=== PATIENT | female | born 1980 | race Caucasian/White ===

== ENCOUNTER 2021-12-18 08:33 | Emergency (ER) | payer MEDICAID ==
[~2021-12-18] VITALS: Ht 152.4 cm; Wt 107.5 kg
[2021-12-18 08:43] VITALS: BP 142/79
--- NOTE | 2021-12-18 08:49 | NUR ---
PT AMBULATED TO ROOM 7
--- NOTE | 2021-12-18 08:58 | NUR ---
MD LEON AT BEDSIDE FOR EVALUATION
[2021-12-18] MEDS ORDERED: ONDANSETRON 4 MG/2 ML VIAL IVP ONE (09:00)
[2021-12-18] MEDS ORDERED: MORPHINE SULFATE 4 MG/ML SYR IVP ONE (09:00)
[2021-12-18] MEDS ORDERED: NACL 0.9% 1,000 ML IV ONE (09:00)
--- NOTE | 2021-12-18 09:12 | NUR ---
LAB AT BEDSIDE
--- NOTE | 2021-12-18 09:25 | NUR ---
PT TAKEN TO CT VIA WHEELCHAIR
--- NOTE | 2021-12-18 09:31 | NUR ---
PT BROUGHT BACK FROM CT VIA WHEELCHAIR
[2021-12-18 09:47] LABS: BASOPHILS % (AUTO) 0.1 % (0.0-2.0); EOSINOPHILS # (AUTO) 0.2 K/uL (0-0.4); EOSINOPHILS % (AUTO) 1.7 % (0.0-4.0); HEMATOCRIT 39.2 % (36-48); HEMOGLOBIN 13.2 g/dL (12.0-16.0); LYMPHOCYTES # (AUTO) 2.9 K/uL (2.5-16.5); LYMPHOCYTES % (AUTO) 23.9 % (20.5-51.1); MEAN CORPUSCULAR HEMOGLOBIN 28 pg (27-31); MEAN CORPUSCULAR HGB CONC 34 g/dL (33-37); MEAN CORPUSCULAR VOLUME 82.2 fL (80-94); MONOCYTES # (AUTO) 0.6 K/uL (0.8-1.0); MONOCYTES % (AUTO) 5.2 % (1.7-9.3); NEUTROPHILS # (AUTO) 8.4 K/uL (1.8-7.7); NEUTROPHILS % (AUTO) 69.1 % (42.2-75.2); PLATELET COUNT (AUTO) 339 K/uL (140-450); RED BLOOD CELL COUNT(AUTO) 4.77 MIL/uL (4.20-5.40); RED CELL DISTRIBUTION WIDTH 14.6 % (11.6-13.7); WHITE BLOOD COUNT (AUTO) 12.2 K/uL (4.8-10.8)
[2021-12-18 10:05] LABS: ALBUMIN 3.4 g/dL (3.4-5.0); ANION GAP 15.1 (8-16); CARBON DIOXIDE 26.2 mmol/L (21-32); CREATININE 0.4 mg/dL (0.6-1.3); POTASSIUM 4.3 mmol/L (3.5-5.1); TOTAL BILIRUBIN 0.7 mg/dL (0.0-1.0)
[2021-12-18] MEDS ORDERED: LID5T TP ×2 (10:22→10:39)
[2021-12-18] MEDS ORDERED: IBUP-2213 PO ×2 (10:22→10:39)
[2021-12-18] MEDS ORDERED: CYCL-711 PO ×2 (10:22→10:39)
--- NOTE | 2021-12-18 10:47 | NUR ---
Patient discharged with v/s stable. Written and verbal after care instructions given and explained. Patient alert, oriented and verbalized understanding of instructions. Ambulatory with steady gait. All questions addressed prior to discharge. ID band removed. Patient advised to follow up with PMD. Rx of FLEXERIL,LIDODEREM,MOTRIN given. Patient educated on indication of medication including possible reaction and side effects. Opportunity to ask questions provided and answered.
[2021-12-18 10:49] VITALS: BP 132/72
== END 2021-12-18 10:47 | disposition home or self-care (01) ==
LOC: MED 08:33
DX: S39.012A Strain of muscle, fascia and tendon of lower back, initial encounter (principal); I10 Essential (primary) hypertension; Z79.899 Other long term (current) drug therapy; Z90.49 Acquired absence of other specified parts of digestive tract; X58.XXXA Exposure to other specified factors, initial encounter; Y93.89 Activity, other specified; Y92.89 Other specified places as the place of occurrence of the external cause; Y99.8 Other external cause status
CPT/HCPCS: 36415; 74176; 80053; 81002; 81025; 85025; 96374; 96375; 99284; J2270; J2405; J7030

== ENCOUNTER 2022-01-25 18:42 | Emergency (ER) | payer MEDICAID ==
[~2022-01-25] VITALS: Ht 172.7 cm; Wt 83.9 kg
[~2022-01-25 18:42] MED LIST: CYCL-711 PO; IBUP-2213 PO; LID5T TP
[2022-01-25 18:45] VITALS: BP 149/79
--- NOTE | 2022-01-25 18:48 | NUR ---
Patient ambulated to bed 7.
--- NOTE | 2022-01-25 18:51 | NUR ---
ELPIDIO Carrillo evaluating patient at bedside.
--- NOTE | 2022-01-25 19:00 | NUR ---
41 y/o female bib self with c/o hemmoroidal pain. Patient has pain when defecating or flatulence. Patient has had hemmoroids in the past. Patient denies any constipation, diarrhea, fever or chills. Patient has scant occasional bleeding when wiping. Medical History: HTN NKDA
--- NOTE | 2022-01-25 19:05 | NUR ---
Report given to TANISHA Tucker for transfer of care.
[2022-01-25] MEDS ORDERED: HYDR-2734 TP ×2 (19:34→19:39)
[2022-01-25 19:55] VITALS: BP 135/76
--- NOTE | 2022-01-25 19:55 | NUR ---
Patient discharged with v/s stable. Written and verbal after care instructions ABOUT HEMORRHOIDS given and explained. Patient alert, oriented and verbalized understanding of instructions. Ambulatory with steady gait. All questions addressed prior to discharge. ID band removed. Patient advised to follow up with PMD. Rx of ANUSOL-HC given. Patient educated on indication of medication including possible reaction and side effects. Opportunity to ask questions provided and answered.
== END 2022-01-25 19:55 | disposition home or self-care (01) ==
LOC: MED 18:42
DX: K64.9 Unspecified hemorrhoids (principal); I10 Essential (primary) hypertension; Z79.899 Other long term (current) drug therapy
CPT/HCPCS: 81025; 99283

== ENCOUNTER 2022-04-23 10:08 | Emergency (ER) | payer MEDICAID ==
[~2022-04-23] VITALS: Ht 152.4 cm; Wt 106.2 kg
[~2022-04-23 10:08] MED LIST changes: +HYDR-2734 TP
[2022-04-23 10:21] VITALS: BP 136/72
--- NOTE | 2022-04-23 11:00 | NUR ---
41 Y/O FEMALE BIB SELF W/ SON C/O HEADACHE X1 WEEK WITH DIZZINESS AND BLURRY VISION WITH TENSION TO THE UPPER BACK. DENIES ANY COUGH, CP, ABD PAIN, SOB. PLACED ON ROUND BONER. NKA PMH: HTN
[2022-04-23] MEDS ORDERED: methocarbamoL 500 MG TAB PO STA (11:43)
[2022-04-23] MEDS ORDERED: NACL 0.9% 1,000 ML IV ONE (11:45)
[2022-04-23] MEDS ORDERED: KETOROLAC 15 MG/ML VIAL IVP ONE (11:45)
--- NOTE | 2022-04-23 12:15 | NUR ---
TAKEN TO CT VIA MARY
[2022-04-23 13:04] LABS: BASOPHILS # (AUTO) 0.1 K/uL (0.00-0.22); BASOPHILS % (AUTO) 1.1 % (0.0-2.0); EOSINOPHILS # (AUTO) 0.2 K/uL (0-0.4); HEMATOCRIT 41.1 % (36-48); HEMOGLOBIN 13.7 g/dL (12.0-16.0); LYMPHOCYTES # (AUTO) 3.5 K/uL (2.5-16.5); LYMPHOCYTES % (AUTO) 30.6 % (20.5-51.1); MEAN CORPUSCULAR HEMOGLOBIN 28 pg (27-31); MEAN CORPUSCULAR HGB CONC 33 g/dL (33-37); MEAN CORPUSCULAR VOLUME 83.1 fL (80-94); MONOCYTES # (AUTO) 0.7 K/uL (0.8-1.0); MONOCYTES % (AUTO) 6.5 % (1.7-9.3); NEUTROPHILS # (AUTO) 6.8 K/uL (1.8-7.7); NEUTROPHILS % (AUTO) 59.8 % (42.2-75.2); PLATELET COUNT (AUTO) 374 K/uL (140-450); RED BLOOD CELL COUNT(AUTO) 4.94 MIL/uL (4.20-5.40); RED CELL DISTRIBUTION WIDTH 14.7 % (11.6-13.7); WHITE BLOOD COUNT (AUTO) 11.4 K/uL (4.8-10.8)
[2022-04-23 13:10] LABS: CARBON DIOXIDE 28.9 mmol/L (21-32); CREATININE 0.6 mg/dL (0.6-1.3); POTASSIUM 3.9 mmol/L (3.5-5.1)
[2022-04-23 13:22] LABS: ALBUMIN 3.6 g/dL (3.4-5.0); TOTAL BILIRUBIN 0.4 mg/dL (0.0-1.0)
--- NOTE | 2022-04-23 14:15 | NUR ---
Patient discharged with v/s stable. Written and verbal after care instructions ABOUT GENERAL HEADACHE W/O CAUSE given and explained. Patient verbalized understanding. Ambulatory with steady gait. All questions addressed prior to discharge. Advised to follow up with PMD.
== END 2022-04-23 14:15 | disposition home or self-care (01) ==
LOC: MED 10:08
DX: H57.02 Anisocoria (principal); I10 Essential (primary) hypertension; Z79.899 Other long term (current) drug therapy
CPT/HCPCS: 36415; 70450; 70496; 70498; 80053; 81025; 85025; 96361; 96374; 99285; J1885; Q9967

== ENCOUNTER 2022-07-12 18:19 | Emergency (ER) | payer MEDICAID ==
[~2022-07-12] VITALS: Ht 160 cm; Wt 106.6 kg
[2022-07-12 18:50] VITALS: BP 125/65
[2022-07-12] MEDS ORDERED: FLONAS NS (20:24)
[2022-07-12 20:30] VITALS: BP 125/65
--- NOTE | 2022-07-12 20:30 | NUR ---
D/C BY . PRESCRIBED FLONASE
== END 2022-07-12 20:30 | disposition home or self-care (01) ==
LOC: MED 18:19
DX: H68.102 Unspecified obstruction of Eustachian tube, left ear (principal)
CPT/HCPCS: 99283

== ENCOUNTER 2023-05-24 01:13 | Emergency (ER) | payer MEDICAID ==
[~2023-05-24] VITALS: Ht 157.5 cm; Wt 104.3 kg
[~2023-05-24 01:13] MED LIST changes: +FLONAS NS
[2023-05-24 01:33] VITALS: BP 128/83; PULSE 73; RESP 18; TEMP 98; O2SAT 96
[2023-05-24 03:00] VITALS: BP 126/74; PULSE 76; RESP 18; TEMP 98; O2SAT 98
== END 2023-05-24 03:00 | disposition home or self-care (01) ==
LOC: MED 01:13
DX: I10 Essential (primary) hypertension (principal); Z79.899 Other long term (current) drug therapy
CPT/HCPCS: 99281